=== PATIENT | female | born 2000 | race Two or more races ===

== ENCOUNTER 2024-04-14 19:58 | Emergency (ER) | payer MEDICAID, SELFPAY ==
[2024-04-14 20:01] VITALS: PULSE 86; RESP 18; O2SAT 99; BMI 25.2
[2024-04-14 20:02] VITALS: BP 135/86; PULSE 98; RESP 16; TEMP 37.5; O2SAT 100; BMI 25.2
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
[2024-04-14] MEDS: HYDROcodone/APAP 5/325 TABLET 1 TAB PO (20:28)
[2024-04-14 20:58] LABS: HCG Qualitative,Urine Negative
[2024-04-14 20:59] VITALS: BP 136/91; PULSE 106; RESP 18; O2SAT 100
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
[2024-04-14 22:34] VITALS: BP 132/76; PULSE 76; RESP 16; O2SAT 98
== END 2024-04-14 22:36 | disposition home or self-care (01) ==
PROVIDERS: Emergency Provider Emergency Medicine
DX: Z04.1 Encounter for examination and observation following transport accident (principal); M54.50 Low back pain, unspecified; R51.9 Headache, unspecified; M54.2 Cervicalgia; M25.511 Pain in right shoulder; R07.81 Pleurodynia
CPT/HCPCS: 70450; 71250; 72125; 73030; 74176; 81025; 99284; A9270